=== PATIENT | male | born 1995 | race Caucasian/White ===

== ENCOUNTER 2019-01-29 14:35 | Emergency (ER) | payer BC ==
[2019-01-29 15:57] VITALS: BP 119/68
--- NOTE | 2019-01-29 16:03 | UC ---
Skin Complaint HPI - HPI Summary HPI Summary: pt presents to the for evaluation of skin irritation to the top of his feet bilaterally for approximately 3 months. he states that he has tried over the counter lotrim creams. it helps but continues to come back. he works at [employer]. he states he wears boots all day. he states that he puts his boots on a dryer. the boots are dry when he goes to work but within a hr of being at work , his socks are soaked. he does state that his feet itch as well. - History of Current Complaint Stated Complaint: SKIN COMPLAINT (LT FOOT) Hx Obtained From: Patient Onset/Duration: Gradual Onset, Other - months Onset Severity: Mild Current Severity: Mild Location: Foot (Right), Foot (Left) - Allergy/Home Medications Allergies/Adverse Reactions: Allergies Allergy/AdvReac Type Severity Reaction Status Date / Time No Known Allergies Allergy Verified 01/29/19 15:57 Home Medications: Home Medications [facility] [place] 1 spr TOPICAL BID 01/29/19 [History Confirmed 01/29/19] PMH/Surg Hx/FS Hx/Imm Hx Previously Healthy: Yes Review of Systems All Other Systems Reviewed And Are Negative: Yes Constitutional: Positive: Negative Skin: Positive: Rash Eyes: Positive: Negative ENT: Positive: Negative Respiratory: Positive: Negative Cardiovascular: Positive: Negative Gastrointestinal: Positive: Negative Genitourinary: Positive: Negative Motor: Positive: Negative Neurovascular: Positive: Negative Musculoskeletal: Positive: Negative Neurological: Positive: Negative Psychological: Positive: Negative Is Patient Immunocompromised?: No Physical Exam Triage Information Reviewed: Yes Appearance: Well-Appearing, No Pain Distress Vital Signs Reviewed: Yes Eye Exam: Normal ENT Exam: Normal Neck exam: Normal Respiratory Exam: Normal Cardiovascular: Positive: RRR, Pulses Normal Abdomen Description: Positive: Nontender, Soft Bowel Sounds: Positive: Present Musculoskeletal Exam: Normal Neurological: Positive: Alert Psychological Exam: Normal Skin: Positive: Rashes - there are patches to the dorsum of his feet bilaterally. he also has intertriginous rash to his right foot as well. it is not raised. the margins are clearly delineated. Course/Dx - Course Course Of Treatment: pt has had recurrent tinea pedis. pt encouraged to keep feet dry and to change socks at work. he was further encouraged to use the rx for the anti-fungal cream. pt discharged - Diagnoses Provider Diagnosis: Tinea pedis of both feet Discharge - Sign-Out/Discharge Documenting (check all that apply): Patient Departure All imaging exams completed and their final reports reviewed: No Studies - Discharge Plan Condition: Stable Disposition: HOME Prescriptions: Ketoconazole 2 % CREAM (NF) [Nizoral 2% CREAM (NF)] 1 applic TOPICAL DAILY #1 tube Patient Education Materials: Athlete's Foot (ED) Referrals: Kurt Thorne MD [Primary Care Provider] - Additional Instructions: please try to keep your socks and feet dry. blow dry your feet after you get out of the shower to help keep [id number] to a minimum. use the antifungal cream daily for 21 days. if you are still having persistent rashes, then you may need oral anti-fungal meds. return if worse or any new symptoms. - Billing Disposition and Condition Condition: STABLE Disposition: Home
== END 2019-01-29 16:18 | disposition home or self-care (01) ==
LOC: UCCORT 14:35
DX: B35.3 Tinea pedis (principal)
CPT/HCPCS: 99202; G0463

== ENCOUNTER 2019-07-27 08:44 | Emergency (ER) | payer BC ==
[2019-07-27 08:57] VITALS: BP 119/81
[2019-07-27] MEDS ORDERED: Fluorescein Sodium TOPICAL* 1 MG TEST STRIP OPHTHALMIC ONE (08:59)
[2019-07-27] MEDS ORDERED: Tetracaine 0.5% OPTH.SOL 4 ML* 1 DROP BTL LEFT EYE ONE (08:59)
--- NOTE | 2019-07-27 09:17 | UC ---
Eye Complaint HPI - HPI Summary HPI Summary: 24-year-old male comes in with a chief complaint of left eye irritation. He woke up this morning with it. He wonders if something is in his eye. It's irritated just above the pupil feels like it's underneath the upper eyelid. No known trauma. Does not wear contacts. No decreased vision is having clear drainage. - History of Current Complaint Chief Complaint: UCEye Stated Complaint: L EYE LACERATION Time Seen by Provider: 07/27/19 08:54 Pain Intensity: 10 - Allergies/Home Medications Allergies/Adverse Reactions: Allergies Allergy/AdvReac Type Severity Reaction Status Date / Time No Known Allergies Allergy Verified 07/27/19 08:55 PMH/Surg Hx/FS Hx/Imm Hx Previously Healthy: Yes - Surgical History Surgical History: Yes Surgery Procedure, Year, and Place: appy. Left ACL - Family History Known Family History: Positive: Non-Contributory - Social History Alcohol Use: None Alcohol Amount: 5 beers Substance Use Type: None Smoking Status (MU): Current Some Day Smoker Type: Smokeless Tobacco Amount Used/How Often: 1/2 can per day Review of Systems All Other Systems Reviewed And Are Negative: Yes Constitutional: Positive: Negative Skin: Positive: Negative Eyes: Positive: Drainage, Eye Redness, Other - SEE HPI ENT: Positive: Negative Respiratory: Positive: Negative Cardiovascular: Positive: Negative Gastrointestinal: Positive: Negative Motor: Positive: Negative Neurovascular: Positive: Negative Musculoskeletal: Positive: Negative Neurological: Positive: Negative Psychological: Positive: Negative Is Patient Immunocompromised?: No Physical Exam Triage Information Reviewed: Yes Appearance: Well-Appearing, No Pain Distress, Well-Nourished Vital Signs: Initial Vital Signs Temp 98.6 F 07/27/19 08:53 Pulse 74 07/27/19 08:53 Resp 14 07/27/19 08:53 BP 119/81 07/27/19 08:53 Pulse Ox 99 07/27/19 08:53 Vital Signs Reviewed: Yes Eyes: Positive: Other: - Left eye has scleral injection with clear tear discharge. The eyelids appear normal do not appreciate a stye at this time.PERRLA EOMI. on fluorescein stain I do not appreciate any foreign body or corneal abrasion. No hyphema. ENT: Negative: Nasal congestion Neck: Positive: Supple Respiratory: Positive: No respiratory distress Musculoskeletal: Positive: Strength Intact, ROM Intact Neurological: Positive: Alert Psychological: Positive: Age Appropriate Behavior Skin Exam: Normal Eye Complaint Course/Dx - Course Course Of Treatment: I did not see any foreign body or corneal abrasion on exam. However given the history most likely cause is a corneal abrasion that I did not see or a conjunctivitis therefore I'm treating with tobramycin eyedrops. Let him know that if he does not improve completely in the next 1 to days he needs to follow up with ophthalmology. - Differential Dx/Diagnosis Provider Diagnosis: Conjunctivitis, left eye Discharge ED - Sign-Out/Discharge Documenting (check all that apply): Patient Departure All imaging exams completed and their final reports reviewed: No Studies - Discharge Plan Condition: Stable Disposition: HOME Prescriptions: Tobramycin 0.3% OPHTH.GUNNAR* 1 drop LEFT EYE Q4H #1 btl Patient Education Materials: Corneal Abrasion (ED), Conjunctivitis (ED) Referrals: Kurt Thorne MD [Primary Care Provider] - Nat Gibson MD [Medical Doctor] - Pedro Darling MD [Medical Doctor] - [facility] [Provider Group] Zackary Brenner MD [Medical Doctor] - Additional Instructions: FOLLOW UP WITH OPHTHALMOLOGY IF NOT COMPLETELY IMPROVED. GET REEVALUATED SOONER IF NOT IMPROVING OR WORSE OR ANY QUESTIONS OR CONCERNS. - Billing Disposition and Condition Condition: STABLE Disposition: Home
== END 2019-07-27 09:20 | disposition home or self-care (01) ==
LOC: UCCORT 08:44
DX: H10.9 Unspecified conjunctivitis (principal); F17.290 Nicotine dependence, other tobacco product, uncomplicated
CPT/HCPCS: 99212; A9270-GY; G0463